=== PATIENT | female | born 1980 | race Caucasian/White ===

== ENCOUNTER → 2021-11-13 | Outpatient (CLI) | payer BC ==
--- NOTE | 2021-11-13 15:24 | NM ---
EXAMINATION TYPE: NM stress cardiolite complete DATE OF EXAM: 11/13/2021 COMPARISON: NONE HISTORY: Abnormal EKG TECHNIQUE: After the intravenous administration of 9.1 mCi Tc 99m Sestamibi - Rest images obtained 4 5 minutes post injection. The patient exercised using a CHRISTY protocol and 1 minute prior to peak e xercise was injected with 24.9 mCi Tc 99m Sestamibi - Stress images obtained 10 minutes post injectio n. FINDINGS: Targeted heart rate was achieved during performance of the study, patient achieved 100% of predicted maximal heart rate. Review of stress and rest SPECT images demonstrates questionable decreased uptake along the septum towards the base the heart on stress as compared to rest images. Gated analysis sh ows normal wall motion with an estimated left ventricular ejection fraction of 75 %. Gut activity is noted on the exam. IMPRESSION: Correlate with echocardiography for elevated ejection fraction. Difficult to exclude str ess-induced left ventricular myocardial ischemia within the septum towards the base the heart
--- NOTE | 2021-11-13 20:06 | EST ---
EXERCISE STRESS DATE OF STUDY: 11/13/2021 AGE: 41 SEX: F HT: 5'2" WT: 102 lbs PROTOCOL: Cardiolite Jaziel STAGE: 3 DURATION OF EXERCISE: 9:00 HEART RATE REST: 89 BLOOD PRESSURE REST: 141/95 MAXIMUM HEART RATE ACHIEVED: 177 MAXIMUM BLOOD PRESSURE: 188/87 85% MPHR: 150 100% MPHR: 177 METS: 10.3 INDICATIONS: Chest pain. CLINICAL INFORMATION: STRESS DATA: Heart rate 89, pressure 141/95 mmHg. Baseline EKG showed sinus mechanism. The patient exercised on the treadmill according to Jaziel protocol for a total of 9 minutes and achieved 10.3 METS. Max heart rate was 177, which is about 100% of maximum predicted heart rate. Maximum blood pressure was 188/78 mmHg. Clinically the patient did not have any symptoms. The EKG did not show any significant ST or T-wave abnormalities concerning for ischemia. CONCLUSION: 1. Excellent exercise tolerance. 2. No symptoms of chest pain or chest discomfort in response to exercise. 3. Mild EKG changes in response to exercise did not meet the criteria for ischemia. 4. Please follow up on the Cardiolite portion on a separate report from Radiology Department. MMODL / IJN: [id number] /
== END | disposition home or self-care (01) ==
LOC: RADNMMAIN 09:06
PROVIDERS: ATTEND Family Medicine
DX: R07.9 Chest pain, unspecified (principal)
CPT/HCPCS: 93017; 78452; A9500